=== PATIENT | female | born 1950 | race Asian ===

== ENCOUNTER 2017-05-03 16:26 | Observation (INO) | payer OTHER ==
[~2017-05-03] VITALS: Ht 165.1 cm; Wt 70.3 kg
--- NOTE | ~2017-05-03 | EXE ---
[facility] [address] [place] [address] STRESS ECHOCARDIOGRAM Name: MONICA BIRD Room #: 218-P ADM IN M.R.#: [id number] Admission: 05/03/17 Attend Phys: Kip Quintanilla, Discharge: Date of : 52 Date of Service: 05/04/17 1447 Report #: [id number] THIS REPORT FOR: //name// APPROVED REPORT Exam: Stress Echocardiogram Indication: Chest pain Patient Location: In-Patient Stress Nurse: Denise Mabry RN Room #: 218 Status: stat Ht: 5 ft 5 in HR: 78 bpm BP: 143/63 mmHg Rhythm: NSR/PVC's Medical History Allergies: No known drug allergies Cardiac Risk Factors: DM Procedure The patient underwent an Exercise Stress Test using the Robbin Protocol. Blood pressure, heart rate, and EKG were monitored. An Echocardiogram was performed by elevator service technician in four stages in quad fashion. At peak stress, four selected images were obtained and placed side by side with resting images for comparison. Stress Test Details Stress Test: Exercise stress testing was performed using a Robbin protocol. HR Resting HR: 78 bpm Max Heart Rate (APMHR): 155 bpm Max HR Achieved: 133 bpm Target HR (85% APMHR): 131 bpm % of APMHR: 85 Recovery HR: 97 bpm HR response to stress: Normal HR response to stress BP Resting BP: 143/63 mmHg Max BP: 164/78 mmHg Recovery BP: 139/62 mmHg ECG Resting ECG: Sinus Rhythm Stress ECG: Sinus Rhythm [facility] [place] [place] [address] STRESS ECHOCARDIOGRAM Name: MONICA BIRD Room #: 218-P [facility] IN M.R.#: [id number] Admission: 05/03/17 Attend Phys: Kip Quintanilla, Discharge: Date of : 52 Date of Service: 05/04/17 1447 Report #: [id number] ST Change: Normal Maximum ST Deviation: 0 mm Arrhythmia: VPC's Recovery ECG: Sinus Rhythm Recovery ST Change: Normal Recovery ST Deviation: 0 mm Clinical Reason for Termination: Moderate fatigue Stress Symptoms: Dyspnea Exercise duration: 8 min 21 sec Exercise capacity: 10.10 METs Angina Score: None No complications. Stress ECG Conclusion Clinical: Non-ischemic ECG: Non-ischemic Swann Treadmill Score is 8.0 which is Low risk. Pre-Stress Echo The resting Echocardiogram showed normal left ventricular contractility with an estimated Ejection Fraction of about 55-60%. Trivial MR, no AI, TV was not well seen Post-Stress Echo The stress Echocardiogram showed normal left ventricular contractility with an estimated Ejection Fraction of about 70%. Clinical Normal augmentation of myocardial wall segments using a 17 segment model. Conclusion Clinical Response: Non-ischemic Exercise Capacity: Average Stress ECG Response: Non-ischemic Stress Echo Images: Non-ischemic No clinical, EKG or echocardiographic evidence for ischemia. Other Information Study Quality: Adequate Technically limited study due to dense scar tissue in breast.. [facility] [address] [place] [address] STRESS ECHOCARDIOGRAM Name: MONICA BIRD Room #: 218-P ADM IN M.R.#: [id number] Admission: 05/03/17 Attend Phys: Kip Quintanilla, Discharge: Date of : 52 Date of Service: 05/04/171446 Report #: [id number] <Conclusion> No clinical, EKG or echocardiographic evidence for ischemia. <ELECTRONICALLY SIGNED> By: Aly Wiggins MD, FACC 05/04/17 1447 46 46 Aly Wiggins MD, FACC /INF
--- NOTE | ~2017-05-03 | EKG ---
[address] [address] ELECTROCARDIOGRAM REPORT Name: MONICA BIRD Room #: 218-P [facility] M.R.#: [id number] Admission: 05/03/17 Attend Phys: Kip Quintanilla MD Discharge: Date of : 52 Report #: [id number] THIS REPORT FOR: //name// [facility] ED Test Date: 2017-05-03 Test Time: 17:42:34 Pat Name: MONICA BIRD Department: Room: 218 Gender: F Physiotherapy Aide: MAXIM : 1950 Requested By: Juli Cruz Order Number: [id number] MD: Aly Wiggins Measurements Intervals [place] Rate: 82 P: 17 LA: 179 QRS: 44 QRSD: 99 T: 30 QT: 369 QTc: 431 Interpretive Statements Sinus rhythm No significant abnormality Compared to ECG 05/03/2017 16:32:54 No significant changes Electronically Signed On 05-04-2017 8:19:46 CDT by Aly Wiggins [email or web address] <ELECTRONICALLY SIGNED> By: Aly Wiggins MD, [facility] 05/04/17 08 D: [id number] Aly Wiggins MD, FAC /EPI
--- NOTE | ~2017-05-03 | EKG ---
[place] [address] [facility] [place] [address] ELECTROCARDIOGRAM REPORT Name: MONICA BIRD Room #: PRE M.R.#: [id number] Admission: Attend Phys: Discharge: Date of : 52 Report #: [id number] THIS REPORT FOR: //name// [facility] ED Test Date: 2017-05-03 Test Time: 16:32:54 Pat Name: MONICA BIRD Department: Room: Gender: F Pump Assembler: Lian PASTRANA : 1950 Requested By: Harsh Gonzalez Order Number: [id number] MD: Aly Wiggins Measurements Intervals [place] Rate: 90 P: 30 [place]: 168 QRS: 36 QRSD: 78 T: 27 QT: 352 QTc: 431 Interpretive Statements Sinus rhythm Low voltage, precordial leads No previous ECG available for comparison Electronically Signed On 05-03-2017 16:57:10 CDT by Aly Wiggins [email or web address] <ELECTRONICALLY SIGNED> By: Aly Wiggins MD, [facility] 05/03/17 1657 1632 1632 Aly Wiggins MD, FACC /EPI
--- NOTE | ~2017-05-03 | H ---
[facility] [place] [address] [place] [address] HISTORY AND PHYSICAL Name: MONICA BIRD Room #: 218-P [facility] M.R.#: [id number] Admission: 05/03/17 Attend Phys: Kip Quintanilla MD Discharge: Date of : 52 Report #: [id number] THIS REPORT FOR: //name// CC: Kip CROOK unknown DATE OF SERVICE: 05/03/2017 REASON FOR ADMISSION: Chest pain. HISTORY OF PRESENT ILLNESS: The patient is a pleasant 66-year-old female. She has unfortunately had poor access to medical care recently, though she has recently reestablished insurance and has been diagnosed with diabetes and started on metformin. She presents to the Emergency Room today because of intermittent chest pain symptoms, which have been ongoing for what appears to be the last few weeks. This is described as sometimes sharp, sometimes heavy sensation in her mid chest. She also has some elbow pain in her left elbow, however, feels this is more likely related to striking her elbow on nearby object. In addition to this, she has had some mild cough and symptoms of an upper respiratory infection and some subjective wheezing. She reports some greenish sputum yesterday, which is changed to whitish color today. She denies any ongoing fever. She denies nausea, vomiting, diarrhea, dizziness, headaches, abdominal pain, or other complaints. PAST MEDICAL HISTORY: Includes diabetes. PAST SURGICAL HISTORY: Includes breast implant placement and removal. MEDICATIONS: Refer to reconciliation note. ALLERGIES: No known drug allergies. SOCIAL HISTORY: She has a remote history of tobacco smoking more than 25 years prior when she was smoking approximately half a pack a day. Denies any alcohol or drug use. FAMILY HISTORY: Denies any significant family history or history of heart disease. REVIEW OF SYSTEMS: Twelve-point review of systems performed and negative except as mentioned in history of present illness. PHYSICAL EXAMINATION: VITAL SIGNS: When seen today, the patient is afebrile, pulse of 76, respiration rate of 14, O2 sat 96% on 2 L, blood pressure 137/70. GENERAL: Awake, alert, in no acute distress. [facility] [address] [place] [address] HISTORY AND PHYSICAL Name: MONICA BIRD Room #: 218-P [facility]..#: [id number] Admission: 05/03/17 Attend Phys: Kip Quintanilla MD Discharge: Date of : 52 Report #: [id number] HEENT: Unremarkable. NECK: No JVD or thyromegaly. CARDIOVASCULAR: S1 and S2 present, regular. RESPIRATORY: Air entry present bilaterally with slight rhonchi bilaterally. ABDOMEN: Soft, nontender, nondistended. EXTREMITIES: Without edema. NEUROLOGIC: Awake, alert. No obvious focal findings. SKIN: Unremarkable. No rash or lesions. LABORATORY DATA AND INVESTIGATIONS: CBC, chemistry, coags are reviewed, unremarkable. BNP and troponin within normal range. Chest x-ray with no acute findings. EKG revealed nonspecific ST changes noted in lead III, Q-waves in lead II. ASSESSMENT AND PLAN: This is a 66-year-old female with newly diagnosed diabetes, presented with intermittent chest pain. 1. Chest pain concerning for possible anginal symptoms. At the present time, we will further evaluate this with serial troponins as well as perform a dobutamine stress test. We will also start the patient on aspirin. 2. Upper respiratory infection/bronchitis. We will utilize one dose of intravenous steroids and use p.r.n. nebulizer. She does not appear to have any indication for antibiotics at the present. 3. Diabetes. Sliding scale insulin coverage for the present. 4. Deep venous thrombosis prophylaxis with Lovenox. <ELECTRONICALLY SIGNED> By: Kip Quintanilla MD 05/04/17 1232 1833 [id number] Kip Quintanilla MD /nt
[2017-05-03 16:29] VITALS: BP 120/72
[2017-05-03] MEDS ORDERED: VITAMINC500 PO (16:31)
[2017-05-03] MEDS ORDERED: VITAMIN E400 UNIT PO (16:31)
[2017-05-03] MEDS ORDERED: METFORMIN HCL500 MG PO (16:31)
[2017-05-03 17:25] LABS: ANION GAP 8 mmol/L (7-16); BUN 10 mg/dL (7-18); CALCIUM 8.8 mg/dL (8.5-10.1); CHLORIDE 102 mmol/L (98-107); CO2 28 mmol/L (21-32); CREATININE 0.6 mg/dL (0.6-1.0); GLUCOSE 160 mg/dL (74-106); POTASSIUM 4.2 mmol/L (3.5-5.1); SODIUM 138 mmol/L (136-145)
[2017-05-03 17:30] LABS: APTT 27.2 Seconds (24.5-32.8); PROTIME 9.6 Seconds (9.3-11.4)
[2017-05-03 17:33] LABS: ALBUMIN 3.8 g/dL (3.4-5.0); ALKALINE PHOSPHATASE 71 U/L (46-116); SGOT 25 U/L (15-37); SGPT 38 U/L (30-65); TOTAL BILIRUBIN 0.2 mg/dL (<0.1-1.0); TOTAL PROTEIN 8.1 g/dL (6.4-8.2); TROPONIN-I < 0.04 ng/mL (<0.04-0.07)
[2017-05-03 17:44] LABS: HEMATOCRIT 40.8 % (37.0-47.0); HEMOGLOBIN 14.2 gm/dL (12.0-15.0); MCH 32.6 pg (26.0-34.0); MCHC 34.7 g/dL (28.0-37.0); MCV 94.1 fL (80.0-100.0); RBC 4.34 mil/uL (4.20-5.00); RDW 12.9 % (10.5-14.5); WBC 5.5 thou/uL (4.0-11.0)
[2017-05-03 18:30] VITALS: BP 137/70
[2017-05-03 18:31] VITALS: BP 137/70
[2017-05-03 19:39] VITALS: BP 130/96
[2017-05-03 20:55] VITALS: BP 125/46
[2017-05-04 00:11] VITALS: BP 116/65
[2017-05-04 04:13] VITALS: BP 116/69
[2017-05-04 07:28] VITALS: BP 133/86
[2017-05-04 11:21] VITALS: BP 143/63
[2017-05-04 16:15] VITALS: BP 143/63
== END 2017-05-04 16:32 | disposition home or self-care (01) ==
LOC: ER 16:26 → 2N 18:13 → EROBS 18:13 → 2N 19:43 → ENTRNSPT 05-04 16:24 → 2N 05-04 16:32
PROVIDERS: Emergency Medicine
DX: R07.9 Chest pain, unspecified (principal); J21.9 Acute bronchiolitis, unspecified; E11.9 Type 2 diabetes mellitus without complications; F17.210 Nicotine dependence, cigarettes, uncomplicated; Z79.899 Other long term (current) drug therapy; Z79.84 Long term (current) use of oral hypoglycemic drugs

== ENCOUNTER 2019-06-22 14:29 | Emergency (ER) | payer OTHER ==
[~2019-06-22] VITALS: Ht 157.5 cm; Wt 63.5 kg
[~2019-06-22 14:29] MED LIST: METFORMIN HCL500 MG PO; VITAMIN E400 UNIT PO; VITAMINC500 PO
[2019-06-22 15:12] LABS: ABSOLUTE NEUTROPHILS 4.6 thou/uL (1.4-8.2); BASOPHILS 1.1 % (0.0-2.0); EOSINOPHILS 1.2 % (0.0-3.0); HEMATOCRIT 40.9 % (37.0-47.0); HEMOGLOBIN 13.9 gm/dL (12.0-15.0); LYMPHOCYTES 31.3 % (24.0-44.0); MCH 31.8 pg (26.0-34.0); MCV 93.8 fL (80.0-100.0); MONOCYTES 4.4 % (1.0-8.0); PLATELET COUNT 301 thou/uL (150-400); RBC 4.36 mil/uL (4.20-5.00); RDW 12.9 % (10.5-14.5); WBC 7.5 thou/uL (4.0-11.0)
[2019-06-22 15:20] LABS: CALCIUM 9.1 mg/dL (8.5-10.1); CREATININE 0.7 mg/dL (0.6-1.0); POTASSIUM 3.7 mmol/L (3.5-5.1)
[2019-06-22 15:21] LABS: MAGNESIUM 1.7 mg/dL (1.8-2.4)
[2019-06-22 16:43] VITALS: BP 140/56
--- NOTE | 2019-06-22 17:48 | EKG ---
[place] [address] [facility] [place] [address] ELECTROCARDIOGRAM REPORT Name: MONICA BIRD Room #: DEP Kathe#: [id number] Admission: 06/22/19 Attend Phys: Discharge: 06/22/19 Date of : 52 Report #: [id number] THIS REPORT FOR: //name// [facility] ED Test Date: 2019-06-22 Test Time: 14:59:53 Pat Name: MONICA BIRD Department: Room: Gender: F Instructional Systems Specialist: W[place] : 1950 Requested By: Robin Mondragon Order Number: [id number] MD: Aly Wiggins Measurements Intervals [place] Rate: 69 P: 28 MT: 177 QRS: 35 QRSD: 98 T: 35 QT: 401 QTc: 430 Interpretive Statements Sinus rhythm Normal tracing Compared to ECG 05/03/2017 17:42:34 No significant changes Electronically Signed On 06-22-2019 17:48:26 CDT by Aly Wiggins [email or web address] <ELECTRONICALLY SIGNED> By: Aly Wiggins MD, [facility] 06/22/19 1748 1459 1459 Aly Wiggins MD, FACC /EPI
== END 2019-06-22 16:44 | disposition home or self-care (01) ==
LOC: ER 14:29
PROVIDERS: Emergency Medicine
DX: S16.1XXA Strain of muscle, fascia and tendon at neck level, initial encounter (principal); E11.9 Type 2 diabetes mellitus without complications; V89.2XXA Person injured in unspecified motor-vehicle accident, traffic, initial encounter; Y92.89 Other specified places as the place of occurrence of the external cause; Y93.89 Activity, other specified; Y99.8 Other external cause status

== ENCOUNTER 2021-07-15 01:41 | Emergency (ER) | payer OTHER ==
[~2021-07-15] VITALS: Ht 165.1 cm; Wt 72.6 kg
[2021-07-15 02:16] LABS: URINE BILIRUBIN 2+ (Negative); URINE BLOOD 3+ (Negative); URINE CLARITY CLOUDY; URINE COLOR RED; URINE GLUCOSE-RANDOM* TRACE (Negative); URINE KETONES TRACE (Negative); URINE PROTEIN (DIPSTICK) 3+ (Negative)
[2021-07-15 02:20] LABS: URINE LEUKOCYTES-REFLEX 3+ (Negative); URINE NITRITE-REFLEX POSITIVE (Negative)
[2021-07-15 02:27] LABS: BACTERIA-REFLEX >30 Many /HPF (None Seen); CASTS None Seen /LPF (None Seen); CRYSTALS None Seen /LPF (None Seen); MUCUS >6 Heavy strn/LPF (None Seen); SQUAMOUS 4-10 Moderate /LPF (0-3); URINE RBC >20 Many /HPF (NONE SEEN); URINE WBC-REFLEX >25 Many /HPF (0-5)
[2021-07-15 02:58] LABS: HEMATOCRIT 39.1 % (37.0-47.0); HEMOGLOBIN 13.2 gm/dL (12.0-15.0)
[2021-07-15 02:59] LABS: CREATININE 0.7 mg/dL (0.6-1.0); POTASSIUM 4.1 mmol/L (3.5-5.1)
[2021-07-15 03:00] LABS: ABSOLUTE NEUTROPHILS 6.9 thou/uL (1.4-8.2); BASOPHILS 0.9 % (0.0-2.0); EOSINOPHILS 3.5 % (0.0-3.0); LYMPHOCYTES 30.4 % (24.0-44.0); MCH 32.1 pg (26.0-34.0); MCHC 33.8 g/dL (28.0-37.0); MCV 95.1 fL (80.0-100.0); MONOCYTES 4.6 % (1.0-8.0); PLATELET COUNT 285 thou/uL (150-400); POLYS 60.6 % (36.0-66.0); RBC 4.11 mil/uL (4.20-5.00); RDW 12.9 % (10.5-14.5); WBC 11.3 thou/uL (4.0-11.0)
[2021-07-15 03:06] LABS: ALBUMIN 3.7 g/dL (3.4-5.0); TOTAL BILIRUBIN 0.6 mg/dL (0.2-1.0); TOTAL PROTEIN 7.8 g/dL (6.4-8.2)
[2021-07-15] MEDS ORDERED: CEFPODOXIME PR200 M1 PO (05:25)
[2021-07-15 05:27] VITALS: BP 102/52
== END 2021-07-15 05:27 | disposition home or self-care (01) ==
LOC: ER 01:41
PROVIDERS: Emergency Medicine
DX: N30.91 Cystitis, unspecified with hematuria (principal); E11.9 Type 2 diabetes mellitus without complications; I10 Essential (primary) hypertension; Z79.899 Other long term (current) drug therapy